=== PATIENT | male | born 1990 | race Two or more races ===

== ENCOUNTER 2018-07-24 05:27 | Day surgery (SDC) | payer OTHER ==
[2018-06-19 11:03] LABS: HEMATOCRIT 48.4 % (37.9-51.0); MEAN CORPUSCULAR HEMOGLOBIN 30.1 pg (27.0-33.4); MEAN CORPUSCULAR HGB CONC 35.2 g/dL (32.0-36.0); MEAN CORPUSCULAR VOLUME 86 fl (80-97); PLATELET COUNT 226 10^3/uL (150-450); RED BLOOD COUNT 5.65 10^6/uL (4.35-5.55); RED CELL DISTRIBUTION WIDTH 13.5 % (11.5-14.0); WHITE BLOOD COUNT 4.2 10^3/uL (4.0-10.5)
[2018-06-19 11:31] LABS: ANION GAP 11 (5-19); BLOOD UREA NITROGEN 14 mg/dL (7-20); CALCIUM 9.9 mg/dL (8.4-10.2); CARBON DIOXIDE 28 mmol/L (22-30); CHLORIDE 102 mmol/L (98-107); GLUCOSE 83 mg/dL (75-110); POTASSIUM 4.9 mmol/L (3.6-5.0); SODIUM 141.3 mmol/L (137-145)
--- NOTE | 2018-06-19 13:00 | EKG REPORT ---
SEVERITY:- ABNORMAL ECG - SINUS RHYTHM LAD, CONSIDER LEFT ANTERIOR FASCICULAR BLOCK : Confirmed by: Humphrey Plaza MD 19-Jun-2018 13:00:15
[~2018-07-24 05:27] MED LIST: ALBUTEROL SULFATE 0.083% NEB 2.5 MG/3 ML AMPUL NEB PRN; CEFAZOLIN 2 GM/D5W RTU 2 GM/50 ML RTUPB IV PRN; LACTATED RINGERS 1000 ML IV PRN; LIDOCAINE 0.5% INJ-PF (5 MG/ML) 50 ML SDV SUBCUT PRN
[2018-07-24] MEDS ORDERED: CEFAZOLIN 2 GM/D5W RTU 2 GM/50 ML RTUPB IV ONE (05:35)
[2018-07-24] MEDS ORDERED: ALBUTEROL SULFATE 0.083% NEB 2.5 MG/3 ML AMPUL NEB ONE (06:07)
[2018-07-24] MEDS ORDERED: EPHEDRINE SULFATE INJ 50 MG/1 ML AMPULE ONE (07:13)
[2018-07-24] MEDS ORDERED: FENTANYL CITRATE INJ/PF 250 MCG/5 ML AMPULE ONE (07:13)
[2018-07-24] MEDS ORDERED: DEXMEDETOMIDINE INJ 80 MCG/20 ML VIAL IV ONE (07:13)
[2018-07-24] MEDS ORDERED: PROPOFOL INJ 200 MG/20 ML VIAL IV ONE (07:14)
[2018-07-24] MEDS ORDERED: ACETAMINOPHEN 1,000 MG/100 ML RTUPB IV ONE (07:14)
[2018-07-24] MEDS ORDERED: BUPIVACAINE INJ/PF LIPOSOME/PF 266 MG/20 ML SDV ONE (07:21)
[2018-07-24] MEDS ORDERED: BUPIVACAINE HCL 0.5 % INJ/PF 30 ML SDV ONE (07:21)
[2018-07-24] MEDS ORDERED: BACITRACIN INJ 50,000 UNIT VIAL ONE (07:21)
[2018-07-24] MEDS ORDERED: MIDAZOLAM 2 MG/2 ML INJ ONE (07:24)
[2018-07-24] MEDS ORDERED: HEPARIN SOD (PORCINE) 1,000 UNIT/ML 10 ML VIAL ONE (07:39)
[2018-07-24] MEDS ORDERED: OXYCODONE-ACETAMINOPHEN 5-325 MG TABLET PO PRN ×2 (08:15)
[2018-07-24] MEDS ORDERED: FENTANYL CITRATE INJ/PF 100 MCG/2 ML AMPUL IV PRN ×3 (08:15)
[2018-07-24] MEDS ORDERED: PROMETHAZINE HCL INJ 25 MG/1 ML VIAL IV PRN ×2 (08:15)
[2018-07-24] MEDS ORDERED: DIPHENHYDRAMINE HCL 50 MG/ML VIAL IV PRN (08:15)
[2018-07-24] MEDS ORDERED: MEPERIDINE HCL/PF INJ 25 MG/1 ML DISP.SYRIN IV PRN (08:15)
[2018-07-24] MEDS ORDERED: FENTANYL CITRATE INJ/PF 100 MCG/2 ML AMPUL ONE (10:05)
[2018-07-24] MEDS ORDERED: ROCURONIUM BROMIDE INJ 50 MG/5 ML VIAL IV ONE (10:28)
[2018-07-24] MEDS ORDERED: SUCCINYLCHOLINE CHLORIDE INJ 200 MG/10 ML VIAL ONE (10:28)
[2018-07-24] MEDS ORDERED: LIDOCAINE 2% INJ-PF (20 MG/ML) 2 ML AMPUL ONE (10:28)
[2018-07-24] MEDS ORDERED: ONDANSETRON HCL INJ/PF 4 MG/2 ML SDV ONE (10:28)
[2018-07-24] MEDS ORDERED: DEXAMETHASONE SOD PHOSPHATE INJ 4 MG/1 ML VIAL ONE (10:28)
[2018-07-24] MEDS ORDERED: NEOSTIGMINE METHYLSULFATE 10 MG/10 ML VIAL ONE (10:28)
[2018-07-24] MEDS ORDERED: GLYCOPYRROLATE 1 MG/5 ML SYRINGE ONE (10:28)
--- NOTE | 2018-07-24 10:29 | OPERATIVE REPORT E ---
Operative Report NAME: JUMA TAYLOR : 1990 AGE: 28Y DATE OF SURGERY: 07/24/2018 ROOM: PREOPERATIVE DIAGNOSIS: L5-S1 stenosis with neurogenic claudication, L5 radiculitis and S1 radiculitis, degenerative disk disease, back pain. POSTOPERATIVE DIAGNOSIS: L5-S1 stenosis with neurogenic claudication, L5 radiculitis and S1 radiculitis, degenerative disk disease, back pain. OPERATION: L5 partial laminectomy, L5-S1 left-sided microdiskectomy. SURGEON: KENNEY MOMIN M.D. DIRECTOR FUNDRAISING: ROBER García ANESTHESIA: General endotracheal intubation. ESTIMATED BLOOD LOSS: 175 mL, none given back with CellS[employer]. COMPLICATIONS: None. DISPOSITION: To recovery room. INDICATIONS FOR SURGERY: The patient is a 28-year-old male who has failed all conservative management, including injections and physical therapy, and continues to have leg and back symptoms. After a discussion with the patient of the risks, indications, and alternatives, including the risk of infection, bleeding, damage to nerves or blood vessels, the risk of dural tear and spinal headache, the risk of adjacent level problems and recurrent disk herniation, the patient understood these risks and wished to pursue the surgical intervention. OPERATIVE TECHNIQUE: The patient was brought into the room, placed under anesthesia, received 2 g of Ancef within 1 hour of cut time. After appropriate surgical time out and after turning up the Jose frame to open up the interspaces posteriorly, the skin was marked under lateral C-arm fluoroscopy to florentino the L5-S1 interspace posteriorly. Upon marking that level and after completion of prepping and draping, the midline incision was carried down through the skin measuring approximately an inch and a half. Dissection was carried down onto the lumbar dorsal fascia. The lumbar dorsal fascia was incised on both sides of the spinous processes at L5-S1 down to the lamina of L5-S1. A modified retractor was used to retract mediolaterally and the posterior interspace was marked with a Braydon. Under lateral C-arm fluoroscopy the posterior interspace was marked and then the spinous process of L5 was partially resected. Then the microscope was brought in and under the microscope, with the assistance of Bennie Connelly, a partial resection of the spinous process was carried out. Partial laminectomy was performed, extending more towards the left side, the lateral recess was decompressed more and ligamentum flavum was resected. Protruding disk was identified. Sizeable epidural bleeders were coagulated using bipolar electrocautery and the dura and the exiting nerve root were retracted medially. Through the assistance of Bennie Connelly under the microscope the disk space was identified and then a needle was placed into the disk space, and lateral C-arm fluoroscopy was used to verify that level. After that an annulotomy was performed with a 15 blade and a long handle, and many small and large pieces of disk, including 2 large pieces that were sitting underneath the annulus, were resected. Then the dura was found to rest more ventrally and the loose pieces were freed up and removed. After that the disk space was irrigated, noting small little pieces of disk that came out. Then, after that, a Valsalva maneuver was performed by Anesthesia, noting no cerebrospinal fluid leakage and no epidural bleeders. The wound was irrigated with a liter of Bacitracin irrigation and then the fascia was reapproximated with 0 Vicryl, the subcu with 2-0 Vicryl, and the skin with a running subcuticular 3-0 Monocryl closure. After closing the fascia the deep and superficial tissues were infiltrated with 0.5% bupivacaine plain mixed with 1.3% Exparel 20 mL per 20 mL and infiltrated into the deep and superficial soft tissues. After completion of closure the wounds were dressed in Benzoin, Steri-Strips, 4 x 4, and tape. The patient tolerated the procedure well. The Jose frame was turned down. The patient was brought to the supine position, extubated, and brought to the recovery room, condition stable. Please note, this procedure could not have been done without the assistance of Bennie Connelly working under the microscope carrying out diskectomy. DICTATING PHYSICIAN: KENNEY MOMIN M.D. [id number] PHY#: [id number] ID: [id number] JOB#: [id number] ACCT: [id number] cc:KENNEY MOMIN M.D. >
[2018-07-24] MEDS ORDERED: HYDROCODONE/ACETAMINOPHEN 5-325 MG TABLET ONE (10:49)
[2018-07-24] MEDS ORDERED: METHOCARBAMOL INJ/PF 1000 MG/10 ML SDV IV ONE (11:00)
--- NOTE | 2018-07-24 11:00 | RADIOLOGY REPORT (SQ) ---
EXAM DESCRIPTION: L SPINE 2 VIEWS; NO CHG FLUORO COMPLETED DATE/TIME: 07/24/2018 9:43 am REASON FOR STUDY: L5 LAMINECTOMY ASSISTED W/ FLUORO IN OR M54.5 LOW BACK PAIN M51.36 OTHER INTERVE RTEBRAL DISC DEGENERATION, LUMBAR REGION M51.16 INTERVERTEBRAL DISC DISORDERS W RADICULOPATHY, LUMBA R COMPARISON: None. FLUOROSCOPY TIME: 0.1 minutes. 2 images saved to PACS. TECHNIQUE: Intra-operative images acquired during surgical procedure to evaluate progress. NUMBER OF IMAGES: 2 images. LIMITATIONS: None. FINDINGS: Lateral images of the lower lumbar spine with instruments posterior to the L5-S1 disc leve l. IMPRESSION: INTRAOPERATIVE LOCALIZATION. COMMENT: Quality ID [id number]: Final reports for procedures using fluoroscopy that document radiation exp osure indices, or exposure time and number of fluorographic images (if radiation exposure indices are not available) Please consult full operative report of the attending physician for description of the procedure. TECHNICAL DOCUMENTATION: JOB ID: [id number] [employer]- All Rights Reserved Reading location - IP/workstation name: [email or web address]
--- NOTE | 2018-07-24 11:00 | RADIOLOGY REPORT (SQ) ---
EXAM DESCRIPTION: L SPINE 2 VIEWS; NO CHG FLUORO COMPLETED DATE/TIME: 07/24/2018 9:43 am REASON FOR STUDY: L5 LAMINECTOMY ASSISTED W/ FLUORO IN OR M54.5 LOW BACK PAIN M51.36 OTHER INTERVE RTEBRAL DISC DEGENERATION, LUMBAR REGION M51.16 INTERVERTEBRAL DISC DISORDERS W RADICULOPATHY, LUMBA R COMPARISON: None. FLUOROSCOPY TIME: 0.1 minutes. 2 images saved to PACS. TECHNIQUE: Intra-operative images acquired during surgical procedure to evaluate progress. NUMBER OF IMAGES: 2 images. LIMITATIONS: None. FINDINGS: Lateral images of the lower lumbar spine with instruments posterior to the L5-S1 disc leve l. IMPRESSION: INTRAOPERATIVE LOCALIZATION. COMMENT: Quality ID [id number]: Final reports for procedures using fluoroscopy that document radiation exp osure indices, or exposure time and number of fluorographic images (if radiation exposure indices are not available) Please consult full operative report of the attending physician for description of the procedure. TECHNICAL DOCUMENTATION: JOB ID: [id number] [employer]- All Rights Reserved Reading location - IP/workstation name: [email or web address]
[2018-07-24 12:03] VITALS: BP 118/78
== END 2018-07-24 12:15 | disposition home or self-care (01) ==
LOC: OROUT 05:27
PROVIDERS: ATTEND Orthopaedic Surgery
DX: M54.5 Low back pain (principal); M51.36 Other intervertebral disc degeneration, lumbar region; M48.061 Spinal stenosis, lumbar region without neurogenic claudication; J45.990 Exercise induced bronchospasm; Z79.51 Long term (current) use of inhaled steroids
CPT/HCPCS: 63047; 93005; 93010; 36415; 85027; 80048; 87070; 72100; J2250; J3490 ×6; J1100; J3010 ×2; J1644; J2800; J0330; J2405; J2704; J0690; J0131; C9290; 630